=== PATIENT | female | born 2005 | race Caucasian/White ===

== ENCOUNTER 2025-01-14 21:44 | Emergency (ER) | payer OTHER, SELFPAY ==
[~2025-01-14] VITALS: Ht 157.5 cm; Wt 78.3 kg
[2025-01-14 22:05] VITALS: TEMP 96
[2025-01-14 22:16] VITALS: BP_SYST 99
[2025-01-14] MEDS: IBUPROFEN 600MG TAB PO ONE (22:25)
[2025-01-14] MEDS: ACETAMINOPHEN 325 MG TAB PO ONE (22:25)
[2025-01-14] MEDS ORDERED: UNRESOLVED CLARIFICATION ENTRY XX STA (22:27)
[2025-01-15 01:30] VITALS: BP_DIAS 99; O2SAT 96
== END 2025-01-15 01:39 | disposition home or self-care (01) ==
LOC: M ED 21:44 → EDBD 21:44 → M ED 01-15 01:39
DX: S16.1XXA Strain of muscle, fascia and tendon at neck level, initial encounter (principal); S39.012A Strain of muscle, fascia and tendon of lower back, initial encounter; V49.00XA Driver injured in collision with unspecified motor vehicles in nontraffic accident, initial encounter; Y92.9 Unspecified place or not applicable; Y93.9 Activity, unspecified; Y99.9 Unspecified external cause status